=== PATIENT | male | born 1990 | race African-American/Black ===

== ENCOUNTER 2016-12-26 10:42 | Emergency (ER) | payer OTHER ==
[~2016-12-26] VITALS: Ht 172.7 cm; Wt 81.9 kg
[~2016-12-26 10:42] MED LIST: MOBIC15 MG PO; NOHOMEMEDS; ULTRAM50 MG PO
[2016-12-26 10:54] VITALS: BP 162/103
== END 2016-12-26 12:10 | disposition left against medical advice (07) ==
LOC: EME 10:42
DX: Z04.1 Encounter for examination and observation following transport accident (principal); Z53.21 Procedure and treatment not carried out due to patient leaving prior to being seen by health care provider